=== PATIENT | male | born 1990 | race Caucasian/White ===

== ENCOUNTER 2016-10-30 21:25 | Emergency (ER) | payer SELFPAY ==
[~2016-10-30] VITALS: Ht 188 cm; Wt 83.0 kg
[2016-10-30 21:40] VITALS: Ht 188 cm; Wt 83.0 kg
[2016-10-30] MEDS ORDERED: IBUP-1542 PO (23:17)
[2016-10-30] MEDS ORDERED: SODI126M NASAL (23:17)
--- NOTE | 2016-10-30 23:23 | ERD ---
ER Documentation Chief Complaint Date/Time DATE: 10/30/16 TIME: 23:19 Chief Complaint ZHOU x2 days, HPI 26-year-old male complaining of headache since last night. Patient reports feeling dizzy and lightheaded when he is standing up. Patient reports nasal congestion. Denies cough or runny nose. Denies abdominal pain, vomiting, or diarrhea. ROS All systems reviewed and are negative except as per history of present illness. Medications Home Meds Active Scripts Sodium Chloride (Saline Nasal Mist) 126 Ml Mist, 2 SPRAY NASAL Q2H Y for NASAL CONGESTION, #1 BOTTLE Prov:MITA LEACH. RESIDENT CARE SUPERVISOR 10/30/16 Ibuprofen* (Motrin*) 600 Mg Tab, 600 MG PO Q6H Y for PAIN AND OR ELEVATED TEMP, #30 TAB Prov:MITA LEACH. RESIDENT CARE SUPERVISOR 10/30/16 Allergies Allergies: Coded Allergies: No Known Allergy (Unverified , 10/30/16) PMhx/Soc Medical and Surgical Hx: pt denies Medical Hx, pt denies Surgical Hx Hx Alcohol Use: No Hx Substance Use: No Hx Tobacco Use: No Smoking Status: Never smoker Physical Exam Vitals Vital Signs Date Time Temp Pulse Resp B/P Pulse Ox O2 Delivery O2 Flow Rate FiO2 10/30/16 21:40 100.6 99 20 108/55 98 Physical Exam General: Well-developed, well-nourished, conscious and coherent, in no distress Skin: Warm and dry without rash, good texture and turgor Head: Normocephalic without evidence of trauma Eyes: Sclera and conjunctivae normal; pupils equal, round, and reactive to light; extraocular movements are intact Ears: Canals are patent. Tympanic membranes are clear Nose/Face: Nasal mucosa erythematous and swollen with clear rhinorrhea Mouth/throat: Mucous membranes are moist. Posterior pharynx clear without erythema or exudates Neck: Supple without meningismus or adenopathy. Carotids are equal. Trachea midline. No bruits or JVD Chest: Normal AP diameter. Good expansion without retractions. Nontender. Lungs are clear to auscultate bilaterally with good tidal volume Heart: Regular rate and rhythm. No murmur, rub, or gallops heard Abdomen: Soft and nontender without masses, guarding, or rebound. Bowel sounds are active. No hepatosplenomegaly Extremities: Full range of motion. Good strength bilaterally. No clubbing, cyanosis, or edema. Peripheral pulses are intact. Sensation intact Neuro: Alert and oriented 4, GCS 15. Cranial nerves grossly intact. Motor and sensory exams nonfocal. Moves all extremities. Speech clear. Gait normal Results 24 hrs Current Medications Medications (Trade) Dose Ordered Sig/Elio Route PRN Reason Start Time Stop Time Status Last Admin Dose Admin Ibuprofen (Motrin) 600 mg ONCE ONCE PO 10/30/16 23:30 10/30/16 23:31 10/30/16 23:15 Procedures/MDM Well-appearing 26-year-old male present ED with headache, lightheadedness 2 days. Patient does have a low-grade fever at the ED. Ibuprofen given to the patient in ED for fever reduction and headache. Patient has nasal congestion along with a fever. Likely patient has a viral URI. Patient is in no respiratory distress. Lungs are clear to auscultate. I doubt that patient has pneumonia or bronchitis. I suspect the headache is secondary to fever. I doubt migraine, cluster headache, tension headache, sinus or dental infection, TMJ syndrome, pseudotumor cerebri, meningitis, encephalitis, giant cell arteritis, glaucoma, subarachnoid hemorrhage, subdural or epidural hematoma, intracranial bleeding or tumor. Patient appears well, stable for discharge and outpatient management. Medical decision making shared with patient and family. Education provided to patient and family. Patient and family expressed understanding of the plan. Medications on discharge: Ibuprofen, saline nasal. Follow-up: Primary care provider in 2-3 days or return to ED if worse. Disclaimer: Inadvertent spelling and grammatical errors are likely due to EHR/ dictation software use and do not reflect on the overall quality of patient care. Also, please note that the electronic time recorded on this note does not necessarily reflect the actual time of the patient encounter. Departure Diagnosis: Primary Impression: URI (upper respiratory infection) URI type: acute nasopharyngitis (common cold) Qualified Code: J00 - Acute nasopharyngitis Condition: Good Patient Instructions: Adult Self-Care for Colds Referrals: COMM[facility]ITY CLIN[facility] YOU HAVE RECEIVED A MEDICAL SCREENING EXAM AND THE RESULTS INDICATE THAT YOU DO NOT HAVE A CONDITION THAT REQUIRES URGENT TREATMENT IN THE EMERGENCY DEPARTMENT. FURTHER EVALUATION AND TREATMENT OF YOUR CONDITION CAN WAIT UNTIL YOU ARE SEEN IN YOUR DOCTORS OFFICE WITHIN THE NEXT 1-2 DAYS. IT IS YOUR RESPONSIBILITY TO MAKE AN APPOINTMENT FOR FOLOW-UP CARE. IF YOU HAVE A PRIMARY DOCTOR --you should call your primary doctor and schedule an appointment IF YOU DO NOT HAVE A PRIMARY DOCTOR YOU CAN CALL OUR PHYSICIAN REFERRAL HOTLINE AT IF YOU CAN NOT AFFORD TO SEE A PHYSICIAN YOU CAN CHOSE FROM THE FOLLOWING [facility] [address] [facility] [address] [facility] [address] [facility] [address] [facility] [address]. [facility] [address] Additional Instructions: Call your primary care doctor TOMORROW for an appointment during the next 2-3 days.See the doctor sooner or return here if your condition worsens before your appointment time. MITA LEACH NP Oct 30, 2016 23:23
[2016-10-30 23:28] VITALS: BP 117/61; PULSE 92; RESP 16; TEMP 97.9
[2016-10-30] MEDS ORDERED: IBUPROFEN 600 MG TAB PO ONE (23:30)
== END 2016-10-30 23:27 | disposition home or self-care (01) ==
LOC: FTE 21:25
DX: J00 Acute nasopharyngitis [common cold] (principal)
CPT/HCPCS: 99283

== ENCOUNTER 2016-11-07 18:22 | Emergency (ER) | payer SELFPAY ==
[~2016-11-07] VITALS: Ht 182.9 cm; Wt 84.5 kg
[~2016-11-07 18:22] MED LIST: IBUP-1542 PO; SODI126M NASAL
[2016-11-07 18:59] VITALS: Ht 182.9 cm; Wt 84.5 kg
[2016-11-07] MEDS ORDERED: LIDOCAINE 2%/EPI MPF (SDV) 20 ML VIAL INJ STA (20:58)
--- NOTE | 2016-11-07 20:58 | ERD ---
ER Documentation Chief Complaint Date/Time DATE: 11/07/16 TIME: 20:55 Chief Complaint Abscess on the left AC due to drugs HPI Left AC space abscess admits to " IV heroin use " pt admits to shooting up before coming into the ED. pt has 2nd c/o LE rash after going to [place]. Patient denies any fever, chills, loss of sensation to fingers. Patient reports pain is "severe" elected by movement of any kind. Greater than 10 out of 10 on pain scale. ROS All systems reviewed and are negative except as per history of present illness. Medications Home Meds Active Scripts Sodium Chloride (Saline Nasal Mist) 126 Ml Mist, 2 SPRAY NASAL Q2H Y for NASAL CONGESTION, #1 BOTTLE Prov:MITA LEACH. WILDLIFE REHABILITATOR 10/30/16 Ibuprofen* (Motrin*) 600 Mg Tab, 600 MG PO Q6H Y for PAIN AND OR ELEVATED TEMP, #30 TAB Prov:MITA LEACH. WILDLIFE REHABILITATOR 10/30/16 Allergies Allergies: Coded Allergies: No Known Allergy (Unverified , 11/07/16) PMhx/Soc Medical and Surgical Hx: pt denies Medical Hx, pt denies Surgical Hx Hx Alcohol Use: No Hx Substance Use: No Hx Tobacco Use: No Smoking Status: Never smoker Physical Exam Vitals Vital Signs Date Time Temp Pulse Resp B/P Pulse Ox O2 Delivery O2 Flow Rate FiO2 11/07/16 18:59 98.8 98 24 135/70 98 Vitals stable, triage notes reviewed Physical Exam Const: Well-nourished, no acute distress Head: Atraumatic Eyes: Normal Conjunctiva PERRLA, EOM ENT: Normal External Ears, Nose and Mouth mucous membranes moist. Neck: Full range of motion..~ No meningismus. Resp: Respirations even and unlabored no respiratory distress Cardio: Abd: Skin: Left antecubital space abscess, hypersensitive to touch, bulbous, high, areas of fluctuation and non-fluctuation. Back: Ext: Upper Extremity - bilateral: Skin: Large bulbous abscess left antecubital space with red hot erythemic surrounding tissue Compartments: Soft Motor: Pain with movement and elbow related to scan and abscess nontender bone movement Sensation: Intact shoulder/pinky/middle finger/thumb web space Bones: Nontender humerus/elbow/forearm/wrist/hand Snuffbox: Nontender Joints: No effusion Pulses/Perfusion: 2+ radial, Capillary refill < 2 seconds Neur: Awake and alert Psych: Normal Mood and Affect Results 24 hrs Current Medications Medications (Trade) Dose Ordered Sig/Elio Route PRN Reason Start Time Stop Time Status Last Admin Dose Admin Cephalexin (Keflex) 500 mg ONCE ONCE PO 11/07/16 21:00 11/07/16 21:04 DC 11/07/16 21:10 Trimethoprim/ Sulfamethoxazole (Bactrim (Ds)) 1 tab ONCE ONCE PO 11/07/16 21:00 11/07/16 21:04 DC 11/07/16 21:10 Lidocaine/ Epinephrine (Xylocaine 2%/ Epi Mpf(Sdv)) 20 ml ONCE STAT INJ 11/07/16 20:58 11/07/16 21:04 DC Diphenhydramine HCl (Benadryl) 25 mg ONCE ONCE PO 11/07/16 21:00 11/07/16 21:04 DC 11/07/16 21:10 Acetaminophen/ Hydrocodone Bitart ([place] (10/325)) 1 tab ONCE ONCE PO 11/07/16 22:30 11/07/16 22:31 DC 11/07/16 22:07 Procedures/MDM Incision and drainage left antecubital space Informed consent obtained. The area was prepped in the usual manner and the skin overlying the abscess was anesthetized with 3 cc of 2% lidocaine with epi. Using aseptic technique the area was sharply incised using an 11 blade, spontaneous drainage of bloody purulent discharge. Exploration cavity with with tunneling. Wound irrigated with sterile saline. Packing was inserted. Bulky pressure dressing applied. CLINICAL PROCEDURE: Ultrasound of the left upper extremity after incision and drainage rule out pseudoaneurysm CLINICAL INDICATION: Left antecubital abscess TECHNIQUE: Multiple transverse and longitudinal thurman scale images were performed left antecubital fossa at the site of this patient's symptom with color Doppler. COMPARISON: None available FINDINGS: There is a 2.9 x 5.8 x 5.4 cm mass of heterogeneous echogenicity with peripheral hyperemia in the antecubital fossa concerning for abscess. IMPRESSION: 5.4 cm heterogeneous mass in the antecubital fossa is concerning for abscess. Electronically viewed and signed by Rosmery Bonilla Physician on 11/07/2016 22: 35 This 26-year-old male patient presents to emergency department for incision and drainage of a left antecubital abscess. Patient admits heroin use, reports last used earlier today. Patient states that arm pain redness and abscess started over a week ago. Symptoms have progressively worsened. Patient is having difficulty using his arm, pain is 10 out of 10 on pain scale, MRSA, necrotizing fasciitis, compartment syndrome, mass septicemia all part of differential diagnosis. I have low suspicion for necrotizing fasciitis or compartment syndrome. Ultrasound shows a post incision and drainage of a heterogenous mass 5.4 cm in the left antecubital fossa concerning for abscess. This case was discussed with supervising physician Dr. Hoffman Patient will continue current plan, antibiotics Keflex 500 mg 1 tab p.o. twice daily 10 days, Bactrim 1 tab p.o. twice daily 7 days. First dose given here in the emergency department. Patient also received Benadryl for leg redness and skin rash with effective improvement of symptoms. Patient instructed to return to emergency department tomorrow for reevaluation, the symptoms have not improved he shall be admitted for further treatment and possible surgical incision and drainage. I feel the patient is stable for discharge at this time. I have discussed results, examination findings, the treatment plan with the patient and family present prior to discharge. Indications for emergent reevaluation, side effects of medication were also discussed. All questions were answered. Patient verbalizes understanding and agrees with plan of care. Patient alerted to watch for signs of infection (redness, pus, pain, increased swelling, or fever) return to office if such occurs. Departure Diagnosis: Primary Impression: Abscess Condition: Good Patient Instructions: Abscess, Incision And Drainage Additional Instructions: Thank you for for coming to [facility] for your care today. Please ask your nurse or provider if you have questions about your care today and do not leave until all your questions have been answered. Please use any medications given as directed and follow-up with your doctor (or the doctor you were referred to) in the next 2-3 days. If you do not have a primary care doctor you may follow up at the [facility] (listed below). You may also use motrin and tylenol as needed for fever and/or pain unless instructed otherwise by your provider or nurse. Indications for more urgent follow-up have been discussed, but you may return to the Emergency Department at ANY time for any worrisome or worsening symptoms. If you have abdominal pain, please know that no test or exam you received is perfect and you should follow up within 8 hours for continued pain. If you had any imaging studies today, such as an X-Ray or CT Scan, these studies will be reviewed later by a radiologist. You will be called if there are important findings that were not identified today, so make sure the contact information you provided at registration is correct. If you received any narcotic pain control medicine today, such as Vicodin, Morphine or Dilaudid, your coordination and judgment may be affected for a number of hours. Please do not drive or operate heavy machinery, and you may want someone to assist you at home. If you were given a prescription for narcotic medication, be aware that it is very addictive- use sparingly and only if necessary. KIERA MENDES Nov 07, 2016 20:58
[2016-11-07] MEDS ORDERED: TRIMETHOPRIM/SULFAMETHOX (DS) TAB PO ONE (21:00)
[2016-11-07] MEDS ORDERED: DIPHENHYDRAMINE 25 MG CAP PO ONE (21:00)
[2016-11-07] MEDS ORDERED: CEPHALEXIN 500 MG CAP PO ONE (21:00)
[2016-11-07] MEDS ORDERED: HYDROCODONE/APAP (10/325) TAB PO ONE (22:30)
--- NOTE | 2016-11-07 22:36 | RADRPT ---
CLINICAL PROCEDURE: Ultrasound of the left upper extremity CLINICAL INDICATION: Left antecubital abscess TECHNIQUE: Multiple transverse and longitudinal thurman scale images were performed left antecubital fo ssa at the site of this patient's symptom with color Doppler. COMPARISON: None available FINDINGS: There is a 2.9 x 5.8 x 5.4 cm mass of heterogeneous echogenicity with peripheral hyperemia in the an tecubital fossa concerning for abscess. IMPRESSION: 5.4 cm heterogeneous mass in the antecubital fossa is concerning for abscess. RPTAT: HCTS Physician Elizabeth Date Time Electronically viewed and signed by Physician Elizabeth on 11/07/2016 22:35 CS/
[2016-11-07] MEDS ORDERED: CEPH-443 PO (23:00)
[2016-11-07] MEDS ORDERED: SULF1TAB31 PO (23:01)
[2016-11-07 23:12] VITALS: BP 130/60; PULSE 82; RESP 20; TEMP 98.2
== END 2016-11-07 23:35 | disposition home or self-care (01) ==
LOC: FTE 18:22
DX: L02.414 Cutaneous abscess of left upper limb (principal)

== ENCOUNTER 2016-12-18 01:57 | Emergency (ER) | payer SELFPAY ==
[~2016-12-18] VITALS: Ht 177.8 cm; Wt 81.5 kg
[~2016-12-18 01:57] MED LIST changes: +CEPH-443 PO; +SULF1TAB31 PO
[2016-12-18 02:01] VITALS: Ht 177.8 cm; Wt 81.5 kg
[2016-12-18] MEDS ORDERED: CLINDAMYCIN 300 MG INJ IM ONE (04:00)
[2016-12-18] MEDS ORDERED: CLIN-73 PO (04:27)
[2016-12-18] MEDS ORDERED: IBUP-1542 PO (04:27)
--- NOTE | 2016-12-18 04:44 | ERD ---
ER Documentation Chief Complaint Date/Time DATE: 12/18/16 TIME: 04:41 Chief Complaint absces left arm HPI 26-year-old male presents here in emergency department for complaints of an abscess on the left arm, patient was seen at another hospital, had an incision and drainage done, patient left prior to getting her medications and antibiotics. Patient his wound rechecked. Patient complains of pain throbbing pain 6/10 scale, is worse upon touching the area. Patient states that they were able to drain pus from the affected area. Patient denies any numbness or tingling. Patient denies any fever or chills. Patient got abscess from injecting heroin on affected area. Having the symptoms for the last 3 days. ROS All systems reviewed and are negative except as per history of present illness. Medications Home Meds Active Scripts Ibuprofen* (Motrin*) 600 Mg Tab, 600 MG PO Q6H Y for PAIN AND OR ELEVATED TEMP, #30 TAB Prov:ADY FLETCHER NP 12/18/16 Clindamycin Hcl* (Clindamycin Hcl*) 300 Mg Capsule, 300 MG PO TID for 10 Days, CAP Prov:ADY FLETCHER LOGISTICS/SHIPPER 12/18/16 Sulfamethoxazole/Trimethoprim* (Bactrim Ds* Tablet) 1 Each Tablet, 1 TAB PO BID , #14 TAB Prov:CINTHYA,KIERA 11/07/16 Cephalexin* (Keflex*) 500 Mg Capsule, 500 MG PO QID for 7 Days, CAP Prov:CINTHYA,KIERA 11/07/16 Sodium Chloride (Saline Nasal Mist) 126 Ml Mist, 2 SPRAY NASAL Q2H Y for NASAL CONGESTION, #1 BOTTLE Prov:MITA LEACH NP 10/30/16 Ibuprofen* (Motrin*) 600 Mg Tab, 600 MG PO Q6H Y for PAIN AND OR ELEVATED TEMP, #30 TAB Prov:MITA LEACH LOGISTICS/SHIPPER 10/30/16 Allergies Allergies: Coded Allergies: No Known Allergy (Unverified , 11/07/16) PMhx/Soc Medical and Surgical Hx: pt denies Medical Hx History of Surgery: Yes (Abscess Repair) Anesthesia Reaction: No Hx Neurological Disorder: No Hx Respiratory Disorders: No Hx Cardiac Disorders: No Hx Psychiatric Problems: No Hx Miscellaneous Medical Probl: No Hx Alcohol Use: No Hx Substance Use: Yes (heroin) Hx Tobacco Use: No Smoking Status: Unknown if ever smoked FmHx Family History: diabetes Physical Exam Vitals Vital Signs Date Time Temp Pulse Resp B/P Pulse Ox O2 Delivery O2 Flow Rate FiO2 12/18/16 02:01 97.8 90 20 137/66 100 Physical Exam GENERAL: The patient is well developed and appropriate for usual state of health, in no apparent distress. CHEST: Clear to auscultation bilaterally. There are no rales, wheezes or rhonchi. HEART: Regular rate and rhythm. No murmurs, clicks, rubs or gallops. No S3 or S4. ABDOMEN: Soft, nontender and nondistended. Good bowel sounds. No rebound or guarding. No gross peritonitis. No gross organomegaly or masses. No Haskins sign or McBurney point tenderness. BACK: No midline or flank tenderness. EXTREMITIES: Equal pulses bilaterally. There is no peripheral clubbing, cyanosis or edema. No focal swelling or erythema. Full range of motion. Grossly neurovascularly intact. NEURO: Alert and oriented. Cranial nerves 2-12 intact. Motor strength in all 4 extremities with 5/5 strength. Sensation grossly intact. Normal speech and gait. SKIN: 5 cm diameter erythematous indurated area on the left arm, no fluctuance noted, open wound noted no pustulant discharge noted. There is no apparent rash or petechia. The skin is warm and dry. HEMATOLOGIC AND LYMPHATIC: There is no evidence of excessive bruising or lymphedema. No gross cervical, axillary, or inguinal lymphadenopathy. Results 24 hrs Current Medications Medications (Trade) Dose Ordered Sig/Elio Route PRN Reason Start Time Stop Time Status Last Admin Dose Admin Clindamycin Phosphate (Cleocin) 600 mg ONCE ONCE IM 12/18/16 04:00 12/18/16 04:01 DC 12/18/16 04:05 Clindamycin IM injection given here in emergency department, refused other 300 mg. Patient tolerated medication well. Procedures/MDM Medical decision making: Patient symptoms is likely is consistent with a soft tissue abscess. Had incision and drainage done in a different hospital, was unable to get antibiotics. No symptoms of any sepsis at this time. No symptoms of any neurovascular compromise. Patient was given for clindamycin, ibuprofen, was advised to follow with primary care doctor in 2 days for wound check, patient is advised to return to emergency department for any worsening symptoms. Disposition: Home. Stable. Departure Diagnosis: Primary Impression: Abscess Condition: Stable Patient Instructions: Abscess, Incision And Drainage ADY FLETCHER NP Dec 18, 2016 04:44
== END 2016-12-18 04:56 | disposition home or self-care (01) ==
LOC: FTE 01:57
DX: L02.414 Cutaneous abscess of left upper limb (principal)
CPT/HCPCS: 96372